=== PATIENT | male | born 1965 | race African-American/Black ===

== ENCOUNTER 2024-09-17 08:46 | Inpatient (IN) | payer OTHER ==
[~2024-09-17] VITALS: Ht 193 cm; Wt 93.2 kg
[2024-09-17 08:47] VITALS: O2SAT 97
[2024-09-17 10:06] LABS: HEMATOCRIT. 34.8 % (42.0-52.0); MEAN CORPUSCULAR HEMOGLOBIN 26.4 pg (28.0-32.0); MEAN CORPUSCULAR HGB CONC 31.7 g/dL (31.0-37.0); MEAN CORPUSCULAR VOLUME 83.2 fL (80.0-94.0); MEAN PLATELET VOLUME 9.2 fl (7.4-10.4); PLATELET 217 x1000/uL (130-400); RED BLOOD CELL COUNT 4.18 mill/uL (4.7-6.1); WHITE BLOOD COUNT 14.2 x1000/uL (4.5-11.0)
[2024-09-17 10:12] LABS: DIFFERENTIAL COMMENT 1
[2024-09-17 10:18] LABS: CHLORIDE 104 mEq/L (98-107); POTASSIUM 3.9 mEq/L (3.5-5.1); SODIUM 138 mEq/L (136-145)
[2024-09-17 10:19] LABS: CALCIUM 9.2 mg/dL (8.7-10.4); CARBON DIOXIDE 28 mEq/L (21-32)
[2024-09-17 10:24] LABS: CREATININE 1.2 mg/dL (0.6-1.3); GLUCOSE 116 mg/dL (70-105); UREA NITROGEN BLOOD 17 mg/dL (9-23)
[2024-09-17 11:04] LABS: TROPONIN I HIGH SENSITIVITY 371 ng/L (3.0-53)
[2024-09-17] MEDS: ENOXAPARIN 80MG/0.8ML SYR SUBCUT NR (12:18)
[2024-09-17] MEDS: CEFTRIAXONE 1GM/50ML 50 ML IV NR (12:18)
[2024-09-17] MEDS: ASPIRIN 325MG EC TABLET PO NR (12:18)
[2024-09-17 13:32] LABS: PLATELET ESTIMATE NORMAL
[2024-09-17] MEDS: AZITHROMYCIN 500MG/250ML 250 ML IV SCH (14:00)
[2024-09-17] MEDS ORDERED: ENOXAPARIN 40MG/0.4ML SYR SUBCUT SCH (14:00)
[2024-09-17] MEDS ORDERED: ACETAMINOPHEN 325MG TABLET PO PRN ×2 (14:15)
[2024-09-17] MEDS ORDERED: DOCUSATE SODIUM 100MG CAPSULE PO PRN (14:15)
[2024-09-17] MEDS ORDERED: ONDANSETRON HCL 4MG/2ML INJ IV PRN (14:15)
[2024-09-17] MEDS ORDERED: MAGNESIUM/ALUMINUM HYDROXIDE/SIMETHICONE 30ML UDC PO PRN (14:15)
[2024-09-17] MEDS ORDERED: IPRATROPIUM/ALBUTEROL 0.5-3(2.5)MG/3ML NEB HHN PRN (14:15)
[2024-09-17] MEDS ORDERED: GUAIFENESIN 200MG/10ML SUGAR FREE UDC PO PRN (14:15)
[2024-09-17] MEDS: NITROGLYCERIN 0.4MG TABLET SL SL ONE (15:22)
[2024-09-17] MEDS: AMLODIPINE 5MG TABLET PO SCH (15:23)
[2024-09-17 15:37] LABS: IRON 17 ug/dL (65-175)
[2024-09-17 15:40] LABS: TOTAL IRON BINDING CAPACITY 180 ug/dl (250-425)
[2024-09-17 15:51] LABS: TROPONIN I HIGH SENSITIVITY 1343 ng/L (3.0-53)
[2024-09-17] MEDS: ACETAMINOPHEN 1000MG/100ML 100 ML IV ONE (15:51)
[2024-09-17 15:58] LABS: D-DIMER 3.42 mg/L FEU (<0.50); INR 1.1; PROTHROMBIN TIME 11.8 sec (9.6-11.0)
[2024-09-17] MEDS: FAMOTIDINE 20MG/2ML VIAL IV SCH (16:45)
[2024-09-17 17:35] LABS: CLARITY URINE CLEAR (CLEAR); COLOR URINE YELLOW (YELLOW); GLUCOSE URINE NEGATIVE (NEGATIVE); KETONES URINE NEGATIVE (NEGATIVE); LEUKOCYTE ESTERASE URINE NEGATIVE (NEGATIVE); NITRITE URINE NEGATIVE (NEGATIVE); OCCULT BLOOD URINE NEGATIVE (NEGATIVE); PH URINE 5.5 (4.5-8.0); PROTEIN URINE 1+ (NEGATIVE); SPECIFIC GRAVITY URINE 1.018 (1.005-1.030)
[2024-09-17 17:48] LABS: *AMPHETAMINES SCREEN URINE NEGATIVE (NEGATIVE); *BARBITURATES SCREEN URINE NEGATIVE (NEGATIVE); *BENZODIAZEPINES SCREEN URINE NEGATIVE (NEGATIVE)
[2024-09-17 17:49] LABS: *COCAINE SCREEN URINE NEGATIVE (NEGATIVE); CANNABINOID URINE SCREEN NEGATIVE (NEGATIVE); ECSTASY MDMA SCREEN URINE NEGATIVE (NEGATIVE); METHADONE URINE SCREEN NEGATIVE (NEGATIVE); OPIATES URINE SCREEN PRESUMPTIVE POSITIVE (NEGATIVE); PHENCYCLIDINE URINE SCREEN NEGATIVE (NEGATIVE)
[2024-09-17 19:04] LABS: BACTERIA URINE 1+; RBC URINE NONE SEEN /hpf (0-2); SQUAMOUS EPITHELIAL CELL URINE FEW /lpf (RARE/1+); WBC URINE 0-2 /hpf (0-2)
[2024-09-17] MEDS: CLONIDINE 0.1MG TABLET PO PRN (19:15)
[2024-09-17 19:19] VITALS: BP 177/105; PULSE 92; RESP 18; TEMP 37.4; O2SAT 96
[2024-09-17 19:25] VITALS: BP 177/105; PULSE 92; RESP 18; TEMP 37.4
[2024-09-17] MEDS: ATORVASTATIN CALCIUM 40MG TABLET PO SCH (23:21)
[2024-09-17] MEDS: ENOXAPARIN 80MG/0.8ML SYR SUBCUT SCH (23:30)
[2024-09-18] VITALS: BP 134/86; PULSE 86; RESP 20; TEMP 36.5; O2SAT 97
[2024-09-18 00:17] LABS: CREATINE KINASE 35 IU/L (46-171)
[2024-09-18 00:24] LABS: TROPONIN I HIGH SENSITIVITY 1222 ng/L (3.0-53)
[2024-09-18 04:00] VITALS: BP 144/91; PULSE 93; RESP 19; TEMP 36.4
[2024-09-18 07:48] LABS: CHLORIDE 106 mEq/L (98-107); POTASSIUM 4.1 mEq/L (3.5-5.1); SODIUM 142 mEq/L (136-145)
[2024-09-18 07:49] LABS: CALCIUM 8.9 mg/dL (8.7-10.4); CARBON DIOXIDE 29 mEq/L (21-32)
[2024-09-18 07:54] LABS: GLUCOSE 97 mg/dL (70-105)
[2024-09-18 07:55] LABS: LDL CHOLESTEROL 39 mg/dL (5-100); TRIGLYCERIDE 56 mg/dL (0-150); UREA NITROGEN BLOOD 13 mg/dL (9-23)
[2024-09-18 07:56] LABS: ALANINE AMINOTRANSFERASE 37 IU/L (10-49); ALBUMIN 3.5 g/dL (3.2-4.8); ASPARTATE AMINOTRANSFERASE 32 IU/L (<34); CHOLESTEROL 89 mg/dL (<200); CREATINE KINASE 31 IU/L (46-171); HDL CHOLESTEROL 34 mg/dL (>55); PHOSPHORUS 2.4 mg/dL (2.5-4.9); PROTEIN TOTAL 6.1 g/dL (6.0-8.3)
[2024-09-18 07:57] LABS: BILIRUBIN TOTAL 0.6 mg/dL (0.1-1.0); T4 FREE 1.17 ng/dL (0.89-1.76)
[2024-09-18 07:58] LABS: THYROID STIMULATING HORMONE 1.16 uIU/mL (0.55-4.78)
[2024-09-18 08:00] VITALS: BP 168/93; PULSE 95; RESP 18; TEMP 36.4; O2SAT 98
[2024-09-18 08:07] LABS: BASOPHILS % 0.2 % (0.0-2.0); EOSINOPHILS % 0.9 % (0.0-5.0); HEMATOCRIT. 33.1 % (42.0-52.0); HEMOGLOBIN. 10.6 g/dL (14.0-18.0); LYMPHOCYTES % 15.9 % (20.0-50.0); MEAN CORPUSCULAR HEMOGLOBIN 26.6 pg (28.0-32.0); MEAN CORPUSCULAR HGB CONC 32.1 g/dL (31.0-37.0); MEAN CORPUSCULAR VOLUME 83.1 fL (80.0-94.0); MEAN PLATELET VOLUME 9.5 fl (7.4-10.4); MONOCYTES % 14.2 % (2.0-8.0); NEUTROPHILS % 68.8 % (40.0-76.0); PLATELET 231 x1000/uL (130-400); RED BLOOD CELL COUNT 3.99 mill/uL (4.7-6.1); WHITE BLOOD COUNT 12.6 x1000/uL (4.5-11.0)
[2024-09-18 08:24] LABS: TROPONIN I HIGH SENSITIVITY 1103 ng/L (3.0-53)
[2024-09-18] MEDS: ASPIRIN 81MG TABLET PO SCH (09:01)
[2024-09-18] MEDS ORDERED: CEFTRIAXONE 1GM/50ML 50 ML IV SCH (11:00)
[2024-09-18] MEDS: CEFTRIAXONE 1GM/50ML 50 ML IV SCH (11:43)
[2024-09-18 12:00] VITALS: BP 152/81; PULSE 90; RESP 18; TEMP 36.8; O2SAT 100
[2024-09-18] MEDS ORDERED: AZITHROMYCIN 500MG/250ML 250 ML IV SCH (14:00)
[2024-09-18] MEDS: AZITHROMYCIN 500MG/250ML 250 ML IV SCH (14:26)
[2024-09-18 16:00] VITALS: BP 147/87; PULSE 96; RESP 18; TEMP 37.1; O2SAT 100
[2024-09-18 16:59] LABS: INFLUENZA TYPE A Presumptive Negative (Pres. Neg.); INFLUENZA TYPE B Presumptive Negative (Pres. Neg.)
[2024-09-18] MEDS ORDERED: LISI20TA31 MT (18:43)
[2024-09-18] MEDS ORDERED: ASPI-1406 PO (18:43)
[2024-09-18 20:00] VITALS: BP 162/102; PULSE 104; RESP 19; TEMP 36.4; O2SAT 100
[2024-09-19] VITALS: BP 143/96; PULSE 88; RESP 19; TEMP 36.9; O2SAT 98
== END 2024-09-19 00:30 | disposition short-term general hospital (02) | DRG 871 ==
LOC: ER 08:46 → EDBEDREQ 13:30 → EDBEDREQTM 13:30 → 6WST 18:44
PROVIDERS: ADMIT Internal Medicine; ATTEND Internal Medicine
DX: A41.9 Sepsis, unspecified organism (principal); I21.4 Non-ST elevation (NSTEMI) myocardial infarction; J18.9 Pneumonia, unspecified organism; I31.39 Other pericardial effusion (noninflammatory); D64.9 Anemia, unspecified; Z20.822 Contact with and (suspected) exposure to COVID-19; F17.210 Nicotine dependence, cigarettes, uncomplicated; E78.5 Hyperlipidemia, unspecified; I10 Essential (primary) hypertension; J06.9 Acute upper respiratory infection, unspecified; J44.9 Chronic obstructive pulmonary disease, unspecified; Z79.82 Long term (current) use of aspirin
CPT/HCPCS: 36415; 71045; 80048; 80053; 80061; 80305; 81003; 82550; 82728; 83036; 83540; 83550; 83605; 83735; 83880; 84100; 84145; 84439; 84443; 84484; 85025; 85379; 87070; 87426; 87804; 93005; 93306; 93970; 99285; A4663; J0456; J0696; J1650; J2405; J3490; J0131